=== PATIENT | male | born 2000 | race Two or more races ===

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

== ENCOUNTER 2021-03-20 18:25 | Emergency (ER) | payer OTHER ==
[2021-03-20] MEDS ORDERED: Ketorolac 30 MG/ML SDV IVPUSH ONE (18:46)
[2021-03-20] MEDS ORDERED: Cyclobenzaprine 10 MG Tab PO ONE (18:46)
[2021-03-20 19:23] VITALS: BP 127/64; PULSE 67
--- NOTE | 2021-03-20 19:40 | EDM.PDOC ---
ED HPI GENERAL MEDICAL PROBLEM - General Chief Complaint: Back Pain or Injury Time Seen by Provider: 03/20/21 18:35 Source of Information: Reports: Patient - History of Present Illness INITIAL COMMENTS - FREE TEXT/NARRATIVE: Zaire is a 20 y/o male who is brought to the ER by EMS after he slipped down 7 carpeted steps and landed on his butt. He reports that he has had some low back pain the last few days. Denies any specific injury, but sometimes the pain is sharp and shoots up his spine. He denies any pain going down the back of his legs. He has not taken any OTC meds. He reports that the pain is not present if he is lying still, but when he moves the pain is there. Treatments FILLETER: Reports: IV/IO Lower Back Pain Score (Numeric/FACES): 9 - Related Data Allergies Allergy/AdvReac Type Severity Reaction Status Date / Time No Known Allergies Allergy Verified 03/20/21 19:18 Home Meds: Home Meds Cyclobenzaprine [Flexeril] 10 mg PO TID PRN #15 tab 03/20/21 [Rx] Past Medical History - Past Health History Medical/Surgical History: Denies Medical/Surgical History Psychiatric History: Reports: ADHD - Infectious Disease History Infectious Disease History: Reports: None - Past Surgical History HEENT Surgical History: Reports: Adenoidectomy, Tonsillectomy Social & Family History - Tobacco Use Tobacco Use Status *Q: Never Tobacco User Review of Systems - Review of Systems Review Of Systems: See Below Constitutional: Reports: No Symptoms Eyes: Reports: No Symptoms Ears: Reports: No Symptoms Nose: Reports: No Symptoms Mouth/Throat: Reports: No Symptoms Respiratory: Reports: No Symptoms Cardiovascular: Reports: No Symptoms GI/Abdominal: Reports: No Symptoms Genitourinary: Reports: No Symptoms Musculoskeletal: Reports: Back Pain Skin: Reports: No Symptoms Neurological: Reports: No Symptoms Psychiatric: Reports: No Symptoms ED EXAM, GENERAL - Physical Exam Exam: See Below Exam Limited By: No Limitations General Appearance: Alert, WD/WN, No Apparent Distress (Adolescent male) Ears: Hearing Grossly Normal Nose: Normal Inspection Throat/Mouth: Normal Voice Head: Atraumatic, Normocephalic Neck: Normal Inspection, Supple Respiratory/Chest: No Respiratory Distress, Lungs Clear Cardiovascular: Normal Peripheral Pulses, Regular Rate, Rhythm GI/Abdominal: Normal Bowel Sounds, Soft (Male) Exam: Deferred Rectal (Males) Exam: Deferred Back Exam: Muscle Spasm (right lower), Vertebral Tenderness (mid thoracic tenderness palpated) Extremities: Normal Inspection, Normal Range of Motion, Normal Capillary Refill Neurological: Alert, Oriented, CN II-XII Intact, Normal Reflexes Psychiatric: Normal Affect Skin Exam: Warm, Dry, Intact, Normal Color, Pallor Lymphatic: No Adenopathy Course - Vital Signs Text/Narrative:: 1834 The patient was seen by the OVERHEAD CLEANER. He was given Toradol 30mg IVP and Cyclobenzaprine 10mg po x 1. 1939 He rested and reported that the pain was improved and he could move now more comfortably. Will send him home with NSAIDS and muscle relaxers. OVERHEAD CLEANER discussed treatment plan with patient and his questions were answered. He was given written instructions and left the ER in stable condition. Last Recorded V/S: Last Vital Signs Temp 37.0 C 03/20/21 18:30 Pulse 67 03/20/21 18:30 Resp 16 03/20/21 18:30 BP 127/64 03/20/21 18:30 Pulse Ox 99 03/20/21 18:30 - Orders/Labs/Meds Meds: Medications Discontinued Medications Generic Name Dose Route Start Last Admin Trade Name Freq PRN Reason Stop Dose Admin Cyclobenzaprine HCl 10 mg 03/20/21 18:46 03/20/21 19:00 Cyclobenzaprine 10 Mg Tab PO 03/20/21 18:47 10 mg ONETIME ONE Administration Ketorolac Tromethamine 30 mg 03/20/21 18:46 03/20/21 19:01 Ketorolac 30 Mg/Ml Sdv IVPUSH 03/20/21 18:47 30 mg ONETIME ONE Administration Departure - Departure Time of Disposition: 19:43 Disposition: DC/Tfer to Psych Hosp/Unit 65 Condition: Good Clinical Impression: Acute back pain Qualifiers: Back pain location: low back pain Back pain laterality: right Sciatica presence: without sciatica Qualified Code(s): M54.5 - Low back pain - Discharge Information *PRESCRIPTION DRUG MONITORING PROGRAM REVIEWED*: Not Applicable *COPY OF PRESCRIPTION DRUG MONITORING REPORT IN PATIENT ROVERTO: Not Applicable Prescriptions: Cyclobenzaprine [Flexeril] 10 mg PO TID PRN #15 tab PRN Reason: Muscle Spasm - Painful Instructions: Acute Back Pain, Adult, Pain Medicine Instructions, [id number] Referrals: Yoly Bernstein MD [Primary Care Provider] - Additional Instructions: -Ibuprofen 200mg 3 tabs orally every 6 hours x 5-7 days then every 6-8 hours as needed (Use over the counter meds) -Acetaminophen 325mg 3 tablets oral every 6 hours in between ibuprofen if needed (Use over the counter meds) -Cyclobenzaprine 10 mg orally every 8 hours as needed for muscle spasms #4 (ER) #15 (Rx) -Ice or heat applied to the area as needed -Rest, Increase activity as able -Follow up with your Primary Care Provider to arrange further diagnostic testing if the pain persists -Return to the ER if any other concerns Sepsis Event Note (ED) - Evaluation Sepsis Screening Result: No Definite Risk - Focused Exam Vital Signs: Vital Signs Temp Pulse Resp BP Pulse Ox 03/20/21 18:30 37.0 C 67 16 127/64 99
[2021-03-20] MEDS ORDERED: Take Home: Cyclobenzaprine 10 MG Tab, 4 Tab Pack PO ONE (19:46)
== END 2021-03-20 20:13 ==
LOC: VM.ED 18:25
DX: M62.830 Muscle spasm of back (principal)
CPT/HCPCS: 96374; 99283; 99284-25; A9270-GY; J1885

== ENCOUNTER 2021-12-22 18:11 | Emergency (ER) | payer OTHER ==
[2021-12-22] MEDS ORDERED: cloNIDine 0.1 MG Tab PO ONE (18:16)
[2021-12-22 18:53] LABS: CHLORIDE,CL 104 mmol/L (98-107); SODIUM,NA 141 mmol/L (136-145)
[2021-12-22 18:56] LABS: ANION GAP 13.5 mmol/L (5-15)
[2021-12-22 19:34] VITALS: BP 128/72; PULSE 68
== END 2021-12-22 19:05 | disposition home or self-care (01) ==
LOC: VM.ED 18:11
DX: R07.9 Chest pain, unspecified (principal); F41.9 Anxiety disorder, unspecified
CPT/HCPCS: 36415; 80053; 84484; 85025; 99284; 99285-25; A9270-GY

== ENCOUNTER 2022-03-03 00:02 | Emergency (ER) | payer OTHER ==
[2022-03-03 01:15] LABS: PTT,PARTIAL THROMBOPLSTIN TIME 26.8 SEC (20.5-30.9)
[2022-03-03 01:17] LABS: CHLORIDE,CL 104 mmol/L (98-107); SODIUM,NA 143 mmol/L (136-145)
[2022-03-03 01:18] LABS: ANION GAP 14.5 mmol/L (5-15); ESTIMATED GFR > 60
[2022-03-03] MEDS ORDERED: Lactated Ringers 1,000 ML IV ONE (01:20)
[2022-03-03 05:47] VITALS: PULSE 68
[2022-03-03 06:07] VITALS: BP 128/69
== END 2022-03-03 02:25 | disposition home or self-care (01) ==
LOC: VM.ED 00:02
DX: R55 Syncope and collapse (principal); E86.0 Dehydration
CPT/HCPCS: 36415; 70450; 71045; 80053; 80307; 81003; 83605; 83735; 84100; 84484; 85025; 85379; 85610; 85730; 86140; 87040; 93005; 96360; 99285; J7120; 93010